=== PATIENT | female | born 1980 | race American Indian/Alaskan Native ===

== ENCOUNTER 2016-11-20 09:44 | Outpatient (CLI) | payer BC | END 2016-11-20 09:45 | disposition home or self-care (01) | LOC: VAS 09:44 | PROVIDERS: ATTEND Internal Medicine | DX: M79.89 Other specified soft tissue disorders (principal) ==

== ENCOUNTER 2017-02-26 10:45 | Outpatient (CLI) | payer BC ==
[2017-02-26 11:53] LABS: Blood Urea Nitrogen 12 mg/dL (7-17)
--- NOTE | 2017-02-26 14:36 | Cat Scan Report ---
CT LUMBAR SPINE WITH AND WITHOUT CONTRAST History: Sciatica, back pain. Technique: Helical CT before and after IV contrast. Sagittal and coronal reformatted images. Findings: Normal bone mineralization. There is normal height and alignment of the lumbar vertebra. The disc spaces and posterior elements are within normal limits. There is no evidence for degenerative change, fracture or bone lesion. Although intraspinal contents can be obscured on CT, there is no evidence for central canal stenosis, large bulging disc or neural foraminal narrowing. No abnormal enhancement following IV contrast. Impression: Lumbar spine within normal limits. No bulging disc, central canal stenosis, neuroforaminal narrowing or acute injury is appreciated.
== END 2017-02-26 10:46 | disposition home or self-care (01) ==
LOC: CT 10:45
PROVIDERS: ATTEND Internal Medicine
DX: M54.40 Lumbago with sciatica, unspecified side (principal); M54.9 Dorsalgia, unspecified
CPT/HCPCS: 36415; 72133; 82565; 84520; Q9967